=== PATIENT | female | born 1975 | race African-American/Black ===

== ENCOUNTER 2019-03-30 10:19 | Emergency (ER) | payer MEDICAID ==
[~2019-03-30] VITALS: Ht 168.9 cm; Wt 113.4 kg
[2019-03-30 10:30] VITALS: BP 130/75
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
[2019-03-30] MEDS ORDERED: CYCLOBENZAPRINE10 MG ORAL (10:40)
[2019-03-30] MEDS ORDERED: IBUPROFEN600 MG ORAL (10:40)
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
--- NOTE | 2019-03-30 10:48 | NUR ---
ER DISCHARGE NOTE: Patient is cleared to be discharged per ERMD, pt is aox4, on room air, with stable vital signs. pt was given dc and prescription instructions, pt was able to verbalize understanding, pt id band removed. pt is able to ambulate with steady gait. pt took all belongings. Encouraged to come back to ED if complications arrise or unable to see PCP, verbalized understanding.
[2019-03-30 10:49] VITALS: BP 135/72
== END 2019-03-30 10:48 | disposition home or self-care (01) ==
LOC: EMR 10:40
DX: M54.2 Cervicalgia (principal); M54.9 Dorsalgia, unspecified; V43.52XA Car driver injured in collision with other type car in traffic accident, initial encounter; Y92.410 Unspecified street and highway as the place of occurrence of the external cause
CPT/HCPCS: 99282

== ENCOUNTER 2019-05-14 20:12 | Emergency (ER) | payer MEDICAID ==
[~2019-05-14] VITALS: Ht 167.6 cm; Wt 113.4 kg
[~2019-05-14 20:12] MED LIST: CYCLOBENZAPRINE10 MG ORAL; IBUPROFEN600 MG ORAL
[2019-05-14 20:32] VITALS: BP 144/93
[2019-05-14] MEDS ORDERED: CEPHALEXIN500 MG ORAL (21:01)
[2019-05-14] MEDS ORDERED: ANTI-ITCH28 G1 TP (21:01)
[2019-05-14 21:08] VITALS: BP 134/87
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
== END 2019-05-14 21:08 | disposition home or self-care (01) ==
LOC: EMR 20:58
DX: S80.861A Insect bite (nonvenomous), right lower leg, initial encounter (principal); W57.XXXA Bitten or stung by nonvenomous insect and other nonvenomous arthropods, initial encounter; Y92.9 Unspecified place or not applicable; E66.9 Obesity, unspecified; Z68.41 Body mass index [BMI] 40.0-44.9, adult
CPT/HCPCS: 82962; 99282